=== PATIENT | female | born 1985 | race Caucasian/White ===

== ENCOUNTER 2021-08-04 21:56 | Emergency (ER) | payer OTHER ==
[2021-08-04 22:14] LABS: RED BLOOD COUNT 4.28 M/UL (4.00-5.10); WHITE BLOOD COUNT 9.2 K/UL (4.5-11.0)
[2021-08-04 22:41] LABS: BUN/CREATININE RATIO 16 (0-10)
[2021-08-05] MEDS ORDERED: CEPHALEXIN500 MG PO (00:21)
== END 2021-08-05 01:10 | disposition home or self-care (01) ==
LOC: ER1 21:56
PROVIDERS: Family Medicine
DX: S97.02XA Crushing injury of left ankle, initial encounter (principal); S97.01XA Crushing injury of right ankle, initial encounter; S87.82XA Crushing injury of left lower leg, initial encounter; S87.81XA Crushing injury of right lower leg, initial encounter; S80.12XA Contusion of left lower leg, initial encounter; S80.11XA Contusion of right lower leg, initial encounter; Z88.5 Allergy status to narcotic agent; Y92.009 Unspecified place in unspecified non-institutional (private) residence as the place of occurrence of the external cause; W23.0XXA Caught, crushed, jammed, or pinched between moving objects, initial encounter; Z23 Encounter for immunization
CPT/HCPCS: 72170; 73610; 73630; 73700; 80053; 83605; 85025; 85610; 85730; 90471; 90715; 96374; 99284; G0480; J1885; J2270; J2405; J7030